=== PATIENT | male | born 1975 | race Caucasian/White ===

== ENCOUNTER 2020-07-24 16:41 | Emergency (ER) | payer OTHER, SELFPAY ==
--- NOTE | 2020-07-24 16:46 | ED.DENTAL ---
HPI - Dental/Oral General Chief complaint: Dental/Oral Stated complaint: tooth pain Time Seen by Provider: 07/24/20 16:46 Source: patient and RN notes reviewed Mode of arrival: ambulatory Limitations: no limitations History of Present Illness HPI Narrative: 44-year-old male presents to the [facility] with complaints of dental pain. Pain and swelling right lower dental area. Gums are red, swollen. No pus pockets. Patient states he had something similar's couple months ago and does not want to get as bad. Patient did not follow-up with a dental provider. Denies any other symptoms. Related Data Home Medications Medication Instructions Recorded Confirmed buprenorphine-naloxone film 07/24/20 clonidine HCl 07/24/20 Allergies Allergy/AdvReac Type Severity Reaction Status Date / Time No Known Allergies Allergy Verified 01/20/19 21:37 Review of Systems Review of Systems: All systems reviewed & are unremarkable except as noted in HPI and below Constitutional: Constitutional: Reports no additional constitutional complaints Eyes: Eyes: Reports no additional eye complaints ENT: Comments: Dental pain right lower Cardiovascular: Cardiovascular: Reports no additional cardiovascular complaints Respiratory: Respiratory: Reports no additional respiratory complaints Gastrointestinal: Gastrointestinal: Reports no additional gastrointestinal complaints Musculoskeletal: Musculoskeletal: Reports no additional musculoskeletal complaints Integumentary/Breasts: Skin/Breast: Reports system reviewed and no additional complaints, except as docu Neurologic: Reports system reviewed and no additional complaints, except as documented Psychiatric: Psychiatric: Reports no additional psychiatric complaints PMFSH Past Medical History Medical History Hypertension Social History Social History Smoking status: Current every day smoker Gender identity (if verbalized by the patient): Male Comments At the time of my signature, I reviewed and agree with the nursing past medical, surgical, social, and family history. There is no relevant family history pertinent to the patient complaint. Exam Const: General: no acute distress and alert Nutritional Appearance: well nourished Orientation/consciousness: patient oriented x3 Limitations: no limitations HENMT: Head: normal to inspection Mouth: Yes Normal oral and palatal mucosa present, Yes lip normal and Yes tongue normal Teeth image: 1. Base of teeth 27, 28 and 29 redness and swelling. No pus pocket noted. Patient states he had similar and did not want it to get as bad. Other: Facial symmetry noted. Eyes: Conjunctivae: conjunctivae normal Pupils: Equal, round and reactive pupils present Neck: Neck: normal visual inspection, no lymphadenopathy and no meningeal signs Chest: Chest palpation & inspection: normal inspection of the chest Resp: Effort & Inspection: normal respiratory effort and no use of accessory muscles Auscultation: clear to auscultation bilaterally Cardio: Rate: regular rate Rhythm: regular rhythm Skin: General skin exam: normal color Rashes: no rashes Neuro: General: patient oriented x3, moves all extremities and no meningeal signs Speech: normal speech Gait exam (Neuro): Normal gait present Extrem: General: normal to inspection Psych: Appearance: grossly normal and well kempt Mental Status: mental status grossly normal Affect: normal affect Attitude: cooperative Thought content: Yes Normal thought content present Course Course Emergency Course: Discharge instructions reviewed with patient, as well as provided in writing per nursing staff. The instructions also include specific and strict return/GO TO THE ER as well as f/u information. All questions have been answered, and the patient deny any further questions with discharge and discha
[2020-07-24 16:49] VITALS: BP 150/90; PULSE 96; RESP 16; TEMP 37; O2SAT 98
== END 2020-07-24 17:08 | disposition home or self-care (01) ==
PROVIDERS: Emergency Provider Nurse Practitioner; PCP Family Medicine
DX: K04.7 Periapical abscess without sinus (principal); I10 Essential (primary) hypertension
CPT/HCPCS: 99213; G0463

== ENCOUNTER 2021-07-26 17:21 | Emergency (ER) | payer OTHER, SELFPAY ==
[2021-07-26 17:31] VITALS: BP 143/81; PULSE 89; RESP 16; TEMP 36.9; O2SAT 98
--- NOTE | 2021-07-26 17:31 | ED.ABDPAIN ---
HPI - Abdominal Pain General Chief Complaint: Abdominal Pain Stated Complaint: Hernia Pain Time Seen by Provider: 07/26/21 17:31 Source: patient and RN notes reviewed Mode of arrival: ambulatory Limitations: no limitations History of Present Illness HPI narrative: 45-year-old male presents to the [facility] with complaints of umbilical pain that has been getting worse over the last 3 days. Patient noticed a swelling within his bellybutton and states he thinks he has hernia. Denies ever being diagnosed with a hernia in the past. Patient is morbidly obese. Called his primary doctor was told to go the ER for severe abdominal pain. Denies any problems with urination or bowel movements. Denies fevers, chest pain or shortness of breath MD elicited complaint: abdominal pain Onset (ago): day(s) (3) Pain Consistency: constant Location: periumbilical Pain scale (0-10): 6 Quality: stabbing and sharp Radiation: none Related Data Home Medications Medication Instructions Recorded Confirmed buprenorphine 2 mg-naloxone 0.5 mg film 07/24/20 sublingual film clonidine HCl 0.1 mg tablet 07/24/20 Allergies Allergy/AdvReac Type Severity Reaction Status Date / Time No Known Allergies Allergy Verified 07/26/21 17:27 Review of Systems Review of Systems: All systems reviewed & are unremarkable except as noted in HPI and below Constitutional: Constitutional: Reports no additional constitutional complaints, Denies chills and Denies fever(s) Eyes: Eyes: Reports no additional eye complaints ENT: Reports system reviewed and no additional complaints, except as documented Cardiovascular: Cardiovascular: Reports no additional cardiovascular complaints Respiratory: Respiratory: Reports no additional respiratory complaints Gastrointestinal: Gastrointestinal: Reports as per HPI and Reports abdominal pain Musculoskeletal: Musculoskeletal: Reports no additional musculoskeletal complaints Integumentary/Breasts: Skin/Breast: Reports system reviewed and no additional complaints, except as docu Neurologic: Reports system reviewed and no additional complaints, except as documented Psychiatric: Psychiatric: Reports no additional psychiatric complaints Allergic/Immunologic: Allergic/Immunologic: Reports no additional allergic/immunologic complaints [facility] Past Medical History Medical History (Updated 07/26/21 @ 17:48 by Anh Del Valle APRN) Drug abuse and dependence Hypertension Surgical History Surgical History (Updated 07/26/21 @ 17:49 by Anh Del Valle APRN) No history of previous surgery Social History Social History Smoking status: Current every day smoker Gender identity (if verbalized by the patient): Male Comments At the time of my signature, I reviewed and agree with the nursing past medical, surgical, social, and family history. There is no relevant family history pertinent to the patient complaint. Exam Const: General: healthy appearing, no acute distress and alert Nutritional Appearance: well nourished and obese morbidly obese Orientation/consciousness: patient oriented x3 Limitations: no limitations HENMT: Head: normal to inspection Ears: external ears normal Eyes: General: appearance normal, both eyes and all related structures Pupils: Equal, round and reactive pupils present Neck: Neck: normal visual inspection, no lymphadenopathy and no meningeal signs Chest: Chest palpation & inspection: normal inspection of the chest Resp: Effort & Inspection: normal respiratory effort and no use of accessory muscles Auscultation: clear to auscultation bilaterally, no crackles, no rales, no rhonchi and no wheezes Cardio: Rate: regular rate Rhythm: regular rhythm GI: GI Palp: Yes Soft to palpation, Yes Tenderness to palpation present (GI) (Periumbilical) and No Guarding due to palpation present (GI) Back/Spine/Pelvis: Cervical Spine: normal cervical
== END 2021-07-26 17:41 | disposition short-term general hospital (02) ==
PROVIDERS: Emergency Provider Nurse Practitioner
DX: R10.33 Periumbilical pain (principal); F17.200 Nicotine dependence, unspecified, uncomplicated; I10 Essential (primary) hypertension
CPT/HCPCS: 99212; G0463

== ENCOUNTER 2021-07-26 17:55 | Emergency (ER) | payer OTHER, SELFPAY ==
[2021-07-26 18:03] VITALS: BP 162/84; PULSE 87; RESP 16; TEMP 36.4; O2SAT 98
--- NOTE | 2021-07-26 18:55 | PC.NURSE ---
EDP at bedside to assess pt.
--- NOTE | 2021-07-26 18:56 | ED.ABDPAIN ---
HPI - Abdominal Pain General Chief Complaint: Abdominal Pain Stated Complaint: ABD PAIN Time Seen by Provider: 07/26/21 18:52 History of Present Illness HPI narrative: 45-year-old male presents with a new palpable mass in his bellybutton, he denies any recent trauma, denies any pain at rest but states that it seems to come out when he coughs. He has a primary care doctor appointment scheduled in a week but wanted to make sure that everything was okay, denies any nausea or vomiting. No fevers or chills Related Data Home Medications Medication Instructions Recorded Confirmed buprenorphine 2 mg-naloxone 0.5 mg 1 film sublingual DAILY 07/24/20 07/26/21 sublingual film clonidine HCl 0.1 mg tablet 0.1 mg PO DIRECTED 07/24/20 07/26/21 Allergies Allergy/AdvReac Type Severity Reaction Status Date / Time No Known Allergies Allergy Verified 07/26/21 17:27 Review of Systems Review of Systems: CONST: No fever. HEENT: No sore throat C/V: No chest pain RESP: No cough GI: No current abdominal pain : No dysuria. SKIN: No rash. [facility] Past Medical History Medical History Drug abuse and dependence Hypertension Surgical History Surgical History No history of previous surgery Social History Social History Smoking status: Current every day smoker Gender identity (if verbalized by the patient): Male Exam Narrative: EXAMINATION OF ORGAN SYSTEMS/BODY AREAS: Constitutional: Vital signs per nursing GENERAL:[No acute distress, non-toxic appearing.] HEAD: Normal with no signs of head trauma. EYES: EOMI, conjunctiva normal ENT: Hearing grossly intact LUNGS: Nonlabored breathing. HEART: [Regular rate and rhythm] ABD: Soft, nontender to palpation, palpable hernia in umbilicus that bulges on cough EXT: Normal range of motion SKIN: [No rashes or lesions.] NEURO: [Alert and oriented x 3. No gross focal sensory or strength deficits.] PSYCH: Normal affect Course Vital Signs Vital signs: Vital Signs Temperature 97.6 F 07/26/21 18:03 Pulse Rate 87 07/26/21 18:03 Respiratory Rate 16 07/26/21 18:03 Blood Pressure 162/84 H 07/26/21 18:03 Pulse Oximetry 98 07/26/21 18:03 Temperature 97.6 F 07/26/21 18:03 Pulse Rate 87 07/26/21 18:03 Respiratory Rate 16 07/26/21 18:03 Blood Pressure 162/84 H 07/26/21 18:03 Pulse Oximetry 98 07/26/21 18:03 MDM - Abdominal Pain MDM Narrative Medical decision making narrative: 45-year-old male presenting with new palpable mass in his bellybutton, vital stable, exam does show an umbilical hernia, it is nonpainful and I doubt any strangulation or incarcerated, it is easily reducible. Patient is reassured, I will give him follow-up to a general surgeon as needed, he is given return precautions such as any worsening pain or inability to reduce the hernia. Stable for discharge home. Discharge Plan Discharge Clinical Impression: Hernia Patient Disposition: Home, Self-Care Condition: Stable Instructions: Antibiotic Form, Umbilical Hernia (ED) Prescriptions: No Action clonidine HCl 0.1 mg tablet 0.1 mg PO DIRECTED buprenorphine-naloxone 2-0.5 mg film 1 film sublingual DAILY Follow-up/Referrals: Giorgio Hernandez MD [Physician] - 2 Days Timothy,MD Logan [Primary Care Provider] -
== END 2021-07-26 19:07 | disposition home or self-care (01) ==
PROVIDERS: Emergency Provider Emergency Medicine; PCP Family Medicine
DX: K42.9 Umbilical hernia without obstruction or gangrene (principal); I10 Essential (primary) hypertension; F17.200 Nicotine dependence, unspecified, uncomplicated
CPT/HCPCS: 99281

== ENCOUNTER 2021-08-16 12:40 | Outpatient (CLI) | payer OTHER, SELFPAY ==
--- NOTE | ~2021-08-16 | XR_ITS ---
XR chest 2V DATE: 08/16/2021 13:01 INDICATION: Nicotine dependence for 30 years. Slight chronic cough. TECHNIQUE: PA and lateral views COMPARISON: None FINDINGS: Normal heart size. No hilar or mediastinal enlargement. No pulmonary infiltrate or consolid ation, pleural effusion or pulmonary vascular congestion or pneumothorax. Mild to moderate bilateral hyperinflation. Mild degenerative spurring of the thoracic spine. IMPRESSION: Mild hyperinflation; no active cardiopulmonary disease Reviewed, dictated and finalized at location B.
== END 2021-08-16 12:41 | disposition home or self-care (01) ==
PROVIDERS: PCP Family Medicine; Visit Provider Family Medicine
DX: F17.200 Nicotine dependence, unspecified, uncomplicated (principal); R91.8 Other nonspecific abnormal finding of lung field
CPT/HCPCS: 71046

== ENCOUNTER 2021-11-11 20:05 | Emergency (ER) | payer OTHER, SELFPAY ==
--- NOTE | ~2021-11-11 | XR_ITS ---
XR ankle RT min 3V 11/11/2021 21:15 INDICATION: Right ankle pain PROCEDURE: 3 views right ankle COMPARISON: No prior studies for comparison. FINDINGS: There is an avulsion fracture of the medial malleolus. Ankle mortise intact. Talar dome is normal. No fibular fracture. No significant soft tissue swelling. IMPRESSION: 1: Nondisplaced medial malleolar fracture. Reviewed, dictated and finalized at location A.
--- NOTE | ~2021-11-11 | XR_ITS ---
XR tibia fibula RT 2V 11/11/2021 22:21 INDICATION: Right leg pain PROCEDURE: 2 views right tibia/fibula COMPARISON: No prior studies for comparison. FINDINGS: Fracture, dislocation or subluxation is not identified. The soft tissues appear within norm al limits. No foreign bodies are identified. IMPRESSION: 1: NO ACUTE BONE OR JOINT ABNORMALITY IDENTIFIED. Reviewed, dictated and finalized at location A.
[2021-11-11 20:32] VITALS: BP 168/77; PULSE 95; RESP 18; TEMP 36.8; O2SAT 98
--- NOTE | 2021-11-11 20:39 | PC.NURSE ---
Ice applied to area in Triage
--- NOTE | 2021-11-11 22:17 | ED.LOWEXIN ---
HPI - Extremity Injury (Lower) General Chief Complaint: Extremity Injury, Lower Stated Complaint: Fall, Right lower leg pain Time Seen by Provider: 11/11/21 21:28 Source: patient Mode of arrival: wheelchair Limitations: no limitations History of Present Illness HPI Narrative: This is a 45-year-old male that presents to the emergency department after a right ankle injury sustained just prior to arrival. Reports he twisted his ankle walking down the steps. Reports swelling and pain to the ankle. Reports decreased range of motion due to pain. Denies other injuries or numbness. Related Data Home Medications Medication Instructions Recorded Confirmed buprenorphine 2 mg-naloxone 0.5 mg 1 film sublingual DAILY 07/24/20 07/26/21 sublingual film clonidine HCl 0.1 mg tablet 0.1 mg PO DIRECTED 07/24/20 07/26/21 Allergies Allergy/AdvReac Type Severity Reaction Status Date / Time No Known Allergies Allergy Verified 11/11/21 20:06 Review of Systems Review of Systems: CONSTITUTIONAL: Denies fever MUSCULOSKELETAL: Reports joint pain, and myalgia. NEUROLOGIC: Denies numbness All systems reviewed & are unremarkable except as noted in HPI and below PMFSH Past Medical History Medical History (Updated 11/12/21 @ 00:00 by Tl Yarbrough) Drug abuse and dependence History of hyperlipidemia Hypertension Surgical History Surgical History No history of previous surgery Social History Social History Smoking status: Current every day smoker Gender identity (if verbalized by the patient): Male Exam Narrative: GENERAL: Well-appearing, well-nourished, and in no acute distress. HEAD: Normocephalic, atraumatic. EYES: EOMI. EXTREMITIES: Decreased active ROM in the right ankle due to pain. No obvious deformity. Normal DP pulse. Normal sensation SKIN: Warm, dry, no rash. NEURO: No focal deficits. Alert and oriented x3. PSYCH: Normal mood and affect Course Vital Signs Vital signs: Vital Signs Temperature 98.2 F 11/11/21 20:32 Pulse Rate 95 11/11/21 20:32 Respiratory Rate 18 11/11/21 20:32 Blood Pressure 168/77 H 11/11/21 20:32 Pulse Oximetry 98 11/11/21 20:32 Oxygen Delivery Room Air 11/11/21 20:32 Temperature 98.2 F 11/11/21 20:32 Pulse Rate 95 11/11/21 20:32 Respiratory Rate 18 11/11/21 20:32 Blood Pressure 168/77 H 11/11/21 20:32 Pulse Oximetry 98 11/11/21 20:32 Oxygen Delivery Room Air 11/11/21 20:32 MDM - Extremity Injury (Lower) MDM Narrative Medical decision making narrative: Patient presents to the ER for right ankle pain after an injury today. He is neurovascularly intact. Right ankle x-ray shows a nondisplaced medial malleolar fracture. Patient was updated on case findings. Placed in a posterior splint and given crutches. Will be given follow up with orthopedics. He was given warnings to return to the ER Imaging Data Radiologist's impression: ITS Impressions Ankle X-Ray 11/11/21 21:17 IMPRESSION: 1: Nondisplaced medial malleolar fracture. Tibia/Fibula X-Ray 11/11/21 22:26 IMPRESSION: 1: NO ACUTE BONE OR JOINT ABNORMALITY IDENTIFIED. Critical Care Time Critical Care Time Critical Care Time: No Discharge Plan Discharge Clinical Impression: Closed fracture of medial malleolus of right ankle Patient Disposition: Home, Self-Care Condition: Stable Instructions: Ankle Fracture (ED) Additional Instructions: Return to the emergency department if you experience fever, redness and swelling of your leg, numbness, or any other symptoms that are concerning to you No weight on the affected leg. Ice and elevate extremity. [id number] pain medication as needed. Prescribed pain medication as needed and directed. Follow up with orthopedics for further care. Prescriptions: New tramadol 50 mg tablet
[2021-11-11] MEDS: HYDROcodone/acetaminophen (*CRX) 5-325 MG TABLET 1 TAB PO (22:22)
== END 2021-11-11 23:00 | disposition home or self-care (01) ==
PROVIDERS: Emergency Provider Emergency Medicine; PCP Family Medicine
DX: S82.51XA Displaced fracture of medial malleolus of right tibia, initial encounter for closed fracture (principal); E78.5 Hyperlipidemia, unspecified; I10 Essential (primary) hypertension; F17.200 Nicotine dependence, unspecified, uncomplicated; X50.9XXA Other and unspecified overexertion or strenuous movements or postures, initial encounter
CPT/HCPCS: 29515; 73590; 73610; 99284; A9270

== ENCOUNTER 2022-06-01 12:08 | Emergency (ER) | payer OTHER, SELFPAY ==
[2022-06-01 12:17] VITALS: BP 131/75; PULSE 91; RESP 16; TEMP 36.6; O2SAT 98
--- NOTE | 2022-06-01 12:56 | ED.DENTAL ---
HPI - Dental/Oral General Chief complaint: Dental/Oral Stated complaint: tooth pain Time Seen by Provider: 06/01/22 12:42 Source: patient Mode of arrival: ambulatory Limitations: no limitations History of Present Illness HPI Narrative: Patient is a 46-year-old male that presents with right lower dental pain for 3 days. States he feels an abscess coming back after it drained 5 days ago. Patient has dental appointment in 3 weeks to have tooth pulled. Has not taken anything for pain. Denies any difficulty swallowing or shortness of breath. Related Data Home Medications Medication Instructions Recorded Confirmed buprenorphine 2 mg-naloxone 0.5 mg 1 film sublingual DAILY 07/24/20 07/26/21 sublingual film clonidine HCl 0.1 mg tablet 0.1 mg PO DIRECTED 07/24/20 07/26/21 atorvastatin 20 mg tablet mg 06/01/22 empagliflozin 25 mg tablet mg 06/01/22 (Jardiance) ergocalciferol (vitamin D2) 1,250 06/01/22 mcg (50,000 unit) capsule fenofibrate 160 mg tablet mg 06/01/22 lisinopril 5 mg tablet mg 06/01/22 metformin 500 mg tablet,extended mg PO 06/01/22 release 24 hr Allergies Allergy/AdvReac Type Severity Reaction Status Date / Time No Known Allergies Allergy Verified 11/11/21 20:06 Review of Systems Review of Systems: All systems reviewed & are unremarkable except as noted in HPI and below Constitutional: Constitutional: Denies body ache(s), Denies fever(s), Denies headache(s), Denies malaise and Denies weakness Eyes: Eyes: Denies loss of vision ENT: Reports dental pain, Denies otalgia, Denies facial pain, Denies headache(s), Denies nasal discharge, Denies sinus pain and Denies sore throat Cardiovascular: Cardiovascular: Denies chest pain, Denies irregular heart rhythm and Denies dyspnea Respiratory: Respiratory: Denies dyspnea Gastrointestinal: Gastrointestinal: Denies abdominal pain, Denies melena, Denies hematochezia, Denies diarrhea, Denies nausea and Denies vomiting Musculoskeletal: Musculoskeletal: Denies back pain, Denies myalgias and Denies arthralgias Integumentary/Breasts: Skin/Breast: Denies pruritus and Denies rash Neurologic: Denies headache(s), Denies loss of vision and Denies weakness Psychiatric: Psychiatric: Reports no additional psychiatric complaints PMFSH Past Medical History Medical History (Updated 06/01/22 @ 13:01 by Trudy Kelly APRN) Drug abuse and dependence History of hyperlipidemia Hypertension Surgical History Surgical History No history of previous surgery Social History Social History Smoking status: Current every day smoker Gender identity (if verbalized by the patient): Male Comments At time of signature, agree with nursing past medical, surgical, social and family history. There is no relevant family history pertinent to the presenting complaint. Exam Const: General: cooperative, healthy appearing, comfortable, no acute distress and well nourished Nutritional Appearance: well nourished Orientation/consciousness: patient oriented x3 Limitations: no limitations HENMT: Head: normal to inspection, normocephalic and atraumatic Ears: hearing grossly normal bilaterally, external ears normal, TM's normal bilaterally and mastoids normal bilaterally Face/Nose/Sinus: Normal external nose present, normal facial exam and face symmetric Face and sinus: normal facial exam and face symmetric Mouth: Yes Normal oral and palatal mucosa present, Yes lip normal, Yes tongue normal, Yes Normal salivary glands and ducts present and Yes moist mucous membranes Teeth image: 1. Tooth intact, no caries. gum line swelling with healing would at base of tooth. Tender on palpation of gum line. Eyes: General: appearance normal, both eyes and all related structures Alignment and Position: alignment normal and position normal Periorbital: periorbital findings normal E
== END 2022-06-01 13:08 | disposition home or self-care (01) ==
PROVIDERS: Emergency Provider Nurse Practitioner Family; PCP Family Medicine
DX: K04.7 Periapical abscess without sinus (principal); E78.5 Hyperlipidemia, unspecified; I10 Essential (primary) hypertension; F17.200 Nicotine dependence, unspecified, uncomplicated
CPT/HCPCS: 99213; G0463

== ENCOUNTER 2022-07-30 23:36 | Emergency (ER) | payer OTHER, SELFPAY ==
--- NOTE | ~2022-07-30 | CT_ITS ---
EXAMINATION: CT soft tissue neck w con DATE: 07/31/2022 04:11 INDICATION: Right-sided facial swelling TECHNIQUE: Computed tomography (CT) of the neck was performed with 75 cc of Omnipaque 350 intravenous contrast. The dose-length product (DLP) was 519.78 mGy-cm. Automated exposure control and iterative reconstruction technique were employed. COMPARISON: None FINDINGS: There is asymmetric enlargement of the right parotid gland compared to the left. There is s ubtle fat stranding surrounding the right parotid gland. No parotid abscess is identified. There is m ild mucosal thickening of the paranasal sinuses. There is mild cervical spondylosis. IMPRESSION: 1. Right parotitis. Reviewed, dictated and finalized at location A. IMPRESSION: 1. Right parotitis.
[2022-07-30 23:39] VITALS: BP 134/73; PULSE 108; RESP 18; TEMP 36.6; O2SAT 96
[2022-07-31 02:10] VITALS: BP 125/72; PULSE 94; RESP 17; O2SAT 96
[2022-07-31 02:13] LABS: Basophils Absolute Auto 0.2 K/mm3 (0.0-0.1); Basophils Percent Auto 0.7 % (0.2-1.2); Eosinophils Absolute Auto 0.5 K/mm3 (0-0.3); Eosinophils Percent Auto 2.3 % (0-4.4); Hematocrit 50.4 % (42.0-52.0); Hemoglobin 16.5 g/dL (14.0-18.0); Immature Granulocyte Absolute 0.13 K/mm3 (0.00-0.031); Immature Granulocyte Percent A 0.6 % (0-0.5); Lymphocytes Absolute Auto 3.95 K/mm3 (0.9-3.2); Lymphocytes Percent Auto 19.6 % (18.3-44.2); Mean Corpuscular HGB Conc 32.7 g/dl (32-36); Mean Corpuscular Hemoglobin 30.1 pg (26-34); Mean Corpuscular Volume 91.8 fl (80-100); Mean Platelet Volume 9.1 fl (7.4-10.4); Monocytes Absolute Auto 1.4 K/mm3 (0.1-0.6); Monocytes Percent Auto 6.8 % (2.6-8.5); Neutrophils Absolute Auto 14.1 K/mm3 (1.3-6.7); Platelet Count Result 425 k/mm3 (150-375); Red Blood Count 5.49 M/mm3 (4.6-6.20); Red Cell Distribution Width 14.5 % (11.5-14.5); White Blood Count 20.2 K/mm3 (4.5-10.0)
--- NOTE | 2022-07-31 02:33 | ED.GENADULT ---
HPI - General Adult General Chief complaint: Unspecified <JOCELYN Rose Last Filed: 07/31/22 03:48> Stated complaint: R sided jaw swelling <JOCELYN Rose Last Filed: 07/31/22 03:48> Time Seen by Provider: 07/31/22 00:13 <JOCELYN Rose Last Filed: 07/31/22 03:48> Source: patient <JOCELYN Rose Last Filed: 07/31/22 03:48> Mode of arrival: ambulatory <JOCELYN Rose Last Filed: 07/31/22 03:48> Limitations: no limitations <JOCELYN Rose Last Filed: 07/31/22 03:48> History of Present Illness HPI narrative: Patient is a 46-year-old male who presents to the ED with report of right lateral jaw swelling. Patient reports that he had slight discomfort in his right lateral jaw earlier today. After taking a shower this evening, he noticed increased swelling, redness, tenderness to his right lateral drawl. He denies any difficulty breathing or swallowing. Denies trismus. Denies pain with chewing. Denies any fever. He does note he had a dental extraction of a right lower tooth 3 weeks ago. He has not had any issues with this. Denies any dental or gum pain at this time. <JOCELYN Rose Last Filed: 07/31/22 03:48> Related Data Home medications: Home Medications Medication Instructions Recorded Confirmed buprenorphine 2 mg-naloxone 0.5 mg 1 film sublingual DAILY 07/24/20 07/26/21 sublingual film clonidine HCl 0.1 mg tablet 0.1 mg PO DIRECTED 07/24/20 07/26/21 atorvastatin 20 mg tablet mg 06/01/22 empagliflozin 25 mg tablet mg 06/01/22 (Jardiance) ergocalciferol (vitamin D2) 1,250 06/01/22 mcg (50,000 unit) capsule fenofibrate 160 mg tablet mg 06/01/22 lisinopril 5 mg tablet mg 06/01/22 metformin 500 mg tablet,extended mg PO 06/01/22 release 24 hr <Keren Castaneda PA-C - Last Filed: 07/31/22 03:48> Allergies/adverse reactions: Allergies Allergy/AdvReac Type Severity Reaction Status Date / Time No Known Allergies Allergy Verified 07/31/22 00:19 <Keren Castaneda PA-C - Last Filed: 07/31/22 03:48> Review of Systems Review of Systems: CONSTITUTIONAL: Denies fever, chills, or sweats. ENT: See HPI. CARDIOVASCULAR: Denies chest pain. RESPIRATORY: Denies dyspnea. <Keren Castaneda PA-C - Last Filed: 07/31/22 03:48> All systems reviewed & are unremarkable except as noted in HPI and below <Keren Castaneda PA-C - Last Filed: 07/31/22 03:48> [facility] Past Medical History Medical History: Medical History Drug abuse and dependence History of hyperlipidemia Hypertension <Keren Castaneda PA-C - Last Filed: 07/31/22 03:48> Surgical History Surgical History: Surgical History No history of previous surgery <Keren Castaneda PA-C - Last Filed: 07/31/22 03:48> Social History Social History: Social History Smoking status: Current every day smoker Gender identity (if verbalized by the patient): Male <Keren Castaneda PA-C - Last Filed: 07/31/22 03:48> Exam Narrative: GENERAL: Well appearing, obese with BMI 38.8, non-toxic, in no acute distress. HEAD: Normocephalic, atraumatic. ENT: Previous dental extraction at tooth #27, no focal abscess, no erythema of gumline. No significant tenderness along upper or lower gumline on right side. Swelling, erythema, likely fluctuance, tenderness to palpation to right lateral posterior jaw, medial to ear, along rami of mandible, in distribution of parotid gland. Tenderness and swelling extending up towards ear, mildly inferior to ear ear. No mastoid tenderness or erythema. TMs clear bilaterally, no bulging or erythema. No trismus. No stridor. Airway patent. NECK: Supple. No si
[2022-07-31 02:34] LABS: Alanine Aminotransferase 26 U/L (6-50); Albumin Level 4.6 g/dL (3.5-5.1); Alkaline Phosphatase 100 U/L (38-126); Anion Gap 6 mmol/L (8-16); Aspartate Amino Transferase 23 U/L (17-59); Bilirubin,Total 0.3 mg/dL (0.2-1.3); Blood Urea Nitrogen 25 mg/dL (9-20); Calcium 9.4 mg/dL (8.4-10.2); Carbon Dioxide 33 mmol/L (22-30); Chloride 95 mmol/L (98-107); Estimated CRCL calculation 93 ml/min; Estimated Glomerular Filt Rate > 60; Glucose 132 mg/dL (65-110); Potassium 4.8 mmol/L (3.4-5.0); Sodium 134 mmol/L (137-145)
[2022-07-31] MEDS: AMPICILLIN SULB 3 GM/NS 100 ML 3 GM/100 ML VIAL IVPB (04:21)
[2022-07-31] MEDS: SODIUM CHLORIDE 0.9% IV 1,000 ML 999 ML IV CONT (04:21)
[2022-07-31 04:24] VITALS: BP 120/73; PULSE 88; RESP 18; O2SAT 96
[2022-07-31 06:55] VITALS: BP 127/70; PULSE 88; RESP 18; O2SAT 95
== END 2022-07-31 07:19 | disposition home or self-care (01) ==
PROVIDERS: Physician Assistant; Emergency Provider Emergency Medicine; PCP Family Medicine
DX: K11.21 Acute sialoadenitis (principal); E78.5 Hyperlipidemia, unspecified; I10 Essential (primary) hypertension; F17.200 Nicotine dependence, unspecified, uncomplicated
CPT/HCPCS: 36415; 70491; 80053; 85025; 96361; 96365; 99284; J0295; J7030; Q9967